=== PATIENT | male | born 1985 | race African-American/Black ===

== ENCOUNTER 2017-07-12 12:51 | Emergency (ER) | payer BC ==
[2017-07-12] MEDS ORDERED: metroNIDAZOLE 500 MG TABLET ×2 (13:30)
[2017-07-12] MEDS: cefTRIAXone IM 250 MG VIAL IM ×2 (13:35)
[2017-07-12] MEDS: AZITHROMYCIN 250 MG TABLET. PO ×2 (13:35)
[2017-07-12] MEDS: metroNIDAZOLE 500 MG TABLET PO ×2 (13:36)
== END 2017-07-12 13:42 | disposition home or self-care (01) ==
LOC: ER 12:51
DX: Z20.2 Contact with and (suspected) exposure to infections with a predominantly sexual mode of transmission (principal)
CPT/HCPCS: 87491; 87591; 96372; 99284-25; J0696; Q0144